=== PATIENT | male | born 1990 | race Caucasian/White ===

== ENCOUNTER 2019-09-18 13:07 | Emergency (ER) | payer SELFPAY ==
[2019-09-18] MEDS ORDERED: Ketorolac 60 MG/2 ML SDV IM ONE (13:48)
--- NOTE | 2019-09-18 13:54 | EDM.PDOC ---
ED HPI GENERAL MEDICAL PROBLEM - General Chief Complaint: Lower Extremity Injury/Pain Stated Complaint: HEEL INJURY Time Seen by Provider: 09/18/19 13:24 Source of Information: Reports: Patient, RN Notes Reviewed History Limitations: Reports: No Limitations - History of Present Illness INITIAL COMMENTS - FREE TEXT/NARRATIVE: Patient is a 28-year-old male who presents to the ED for evaluation of his left heel pain. Patient states that he was playing softball on Saturday evening, and he developed some pain, Saturday morning to the back of his heel, and he points to his Achilles area when he is asked where the pain is. Patient has been using 800 mg of Motrin 2 times a day, and has been icing the area. He states that when the icing pack comes off, the pain seems to come back fairly quickly. He does have a lot of pain with walking, and states that it hurts worse to the point his toes upwards, he states when he plantar flexes his foot there is not near as much pain. He states the pain does not radiate up his leg. Characterizes the pain as a sharp stabbing pain in nature. Patient denies any trauma to the area, on Saturday night at the softball game. He denies any numbness or tingling into his toes. He is not known to have any sort of plantars fasciitis, or other musculoskeletal abnormality in this area. Patient denies any other sick-like symptoms, fever/chills, cough/shortness of breath, nausea/vomiting/diarrhea. 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 Other Treatments CELL TOWER CLIMBER: mortin Left Foot Pain Score (Numeric/FACES): 4 - Related Data Allergies Allergy/AdvReac Type Severity Reaction Status Date / Time No Known Allergies Allergy Verified 09/18/19 13:30 Home Meds: Home Meds Naproxen [Naprosyn] 500 mg PO Q12HR #20 tab 09/18/19 [Rx] Past Medical History - Past Health History Medical/Surgical History: Denies Medical/Surgical History Social & Family History - Tobacco Use Smoking Status *Q: Never Smoker - Caffeine Use Caffeine Use: Reports: Soda - Recreational Drug Use Recreational Drug Use: No Review of Systems - Review of Systems Review Of Systems: Comprehensive ROS is negative, except as noted in HPI. ED EXAM, GENERAL - Physical Exam Exam: See Below Exam Limited By: No Limitations General Appearance: Alert, WD/WN, No Apparent Distress Respiratory/Chest: No Respiratory Distress, Lungs Clear, Normal Breath Sounds, No Accessory Muscle Use, Chest Non-Tender Cardiovascular: Normal Peripheral Pulses, Regular Rate, Rhythm, No Murmur GI/Abdominal: Normal Bowel Sounds, Soft, Non-Tender, No Distention, No Mass Extremities: Normal Inspection, Normal Range of Motion, Normal Capillary Refill , Other (pt does have mild pain with palpation of the posterior heel bone, no obvious swelling or ecchymosis noted.) Neurological: Alert, Oriented, CN II-XII Intact, Normal Cognition, Normal Reflexes, No Motor/Sensory Deficits Psychiatric: Normal Affect, Normal Mood Skin Exam: Warm, Dry, Intact, Normal Color, No Rash Course - Vital Signs Last Recorded V/S: Last Vital Signs Temp 97.9 F 09/18/19 13:34 Pulse 86 09/18/19 13:34 Resp 20 09/18/19 13:34 BP 182/83 H 09/18/19 13:34 Pulse Ox 96 09/18/19 13:34 - Orders/Labs/Meds Orders: Active Orders 24 hr Category Date Time Status DME for Discharge [COMM] Routine Oth 09/18/19 14:20 Ordered Meds: Medications Discontinued Medications Generic Name Dose Route Start Last Admin Trade Name Romeroq PRN Reason Stop Dose Admin Ketorolac Tromethamine 60 mg 09/18/19 13:48 09/18/19 14:07 Toradol IM 09/18/19 13:49 60 mg ONETIME ONE Administration - Re-Assessments/Exams Free Text/Narrative Re-Assessment/Exam: 09/18/19 13:53 Patient presents to the ED for the evaluation of his left heel pain. I do highly suspect this is a strain of the Achilles tendon in nature, due to the pain he is describing and the pain that was reproduced on physical exam. Have ordered foot x-rays to be obtained to rule out the possibility of any sort of fracture, and have ordered 60 mg IM Toradol for initial pain management. 09/18/19 14:16 Patient's x-ray has been done, and there is a calcaneal spur noted at the attachment of the Achilles tendon to the calcaneus. At this time I will place him in a walking boot, he will not be able to participate in softball until cleared by ortho or his PCP. Since he is 28 years old, he will have to establish with a provider of choice. Departure - Departure Time of Disposition: 14:20 Disposition: Home, Self-Care 01 Condition: Good Clinical Impression: Achilles tendinitis, left leg Heel spur Qualifiers: Laterality: left Qualified Code(s): M77.32 - Calcaneal spur, left foot - Discharge Information *PRESCRIPTION DRUG MONITORING PROGRAM REVIEWED*: No *COPY OF PRESCRIPTION DRUG MONITORING REPORT IN PATIENT KASH: No Prescriptions: Naproxen [Naprosyn] 500 mg PO Q12HR #20 tab Instructions: Achilles Tendinitis With Rehab-SportsMed, Heel Spur Referrals: PCP,None [Primary Care Provider] - Forms: ED Department Discharge, ED Return to Work/School Form Additional Instructions: You have been evaluated in the ED for your left heel pain. Your x-ray demonstrated a heel spur on the back of your heel in the area that attaches to the Achilles tendon. It is very likely that you have strained your Achilles tendon due to the recent start of your softball league. Please use ice as tolerated to the affected area. Please try to elevate the affected area to relieve swelling. Have been provided with a walking boot, to help limit mobility in this area and help provide further pain relief. You may take Tylenol 500 mg or ibuprofen 600mg q6 hrs for pain relief. Please do so until you have a tolerable level of pain with activity. Do not exceed 4000mg Tylenol or 3200mg ibuprofen in a 24 hour time period. You were given a prescription for Naprosyn, which is a prescription strength Aleve, you may take 1 tablet every 12 hours for further pain relief. This was electronically prescribed to the [facility] pharmacy located on [address]. If you are taking the Naprosyn, do not take extra ibuprofen in conjunction with this. As this can put you at increased risk for a GI bleed ulcer. Highly recommend you follow-up with a regular care provider, or Dr. Cutler, explosive ordnance specialist for further evaluation of the area, for the possibility of an MRI to evaluate the Achilles tendon if things do not seem to be getting much better in a reasonable amount of time. Our clinic number is [phone], any family practice provider would be able to provide you with primary care services. If you should wish to see Dr. Cutler, his office number [phone]. Recommend that you do not participate in softball, this Saturday, until you can be reevaluated by a primary care provider or orthopedics. This will likely take a few weeks, for this to feel much better. Please return to ED if your symptoms should change or worsen. Sepsis Event Note (ED) - Evaluation Sepsis Screening Result: No Definite Risk - Focused Exam Vital Signs: Vital Signs Temp Pulse Resp BP Pulse Ox 09/18/19 13:34 97.9 F 86 20 182/83 H 96 - My Orders Last 24 Hours: My Active Orders 09/18/19 14:20 DME for Discharge [COMM] Routine - Assessment/Plan Last 24 Hours: My Active Orders 09/18/19 14:20 DME for Discharge [COMM] Routine
--- NOTE | 2019-09-18 14:08 | CR ---
Left foot: 4 views left foot were obtained. Comparison: No previous foot study. Small spur noted at the attachment of the Achilles tendon to the calcaneus. Small calcification noted off the corner base of the proximal phalanx of the 1st toe which is well-corticated and felt to be old. Small bunion deformity is noted. No acute fracture, dislocation or other bony abnormality is appreciated. Impression: 1. Calcaneal spur as noted above. 2. Bunion deformity. Diagnostic code #2 This report was dictated in MDT
== END 2019-09-18 14:45 | disposition home or self-care (01) ==
LOC: JD.ED 13:07
DX: M77.32 Calcaneal spur, left foot (principal); M76.62 Achilles tendinitis, left leg
CPT/HCPCS: 73630; 96372; 99283; J1885